=== PATIENT | female | born 1975 | race Caucasian/White ===

== ENCOUNTER → 2016-05-25 | Outpatient (CLI) | payer OTHER ==
[~2016-05-25] MED LIST: MTR600X PO; OXYC-57 PO
== END | disposition home or self-care (01) ==
LOC: C.PAPS 10:19
PROVIDERS: ATTEND Obstetrics & Gynecology
DX: Z12.4 Encounter for screening for malignant neoplasm of cervix (principal)

== ENCOUNTER → 2016-05-25 | Outpatient (CLI) | payer OTHER ==
[2016-05-31 13:54] LABS: CHLAMYDIA TRACH RNA*** NOT DETECTED (NOT DETECTED); GC (NEIS GONORRHOEAE)RNA** NOT DETECTED (NOT DETECTED); TRICHOMONAS VAGINALIS RNA** NOT DETECTED (NOT DETECTED)
== END | disposition home or self-care (01) ==
LOC: C.LAB1850 16:01
PROVIDERS: ATTEND Obstetrics & Gynecology
DX: Z11.3 Encounter for screening for infections with a predominantly sexual mode of transmission (principal); N93.9 Abnormal uterine and vaginal bleeding, unspecified

== ENCOUNTER → 2017-07-25 | Outpatient (CLI) | payer BC ==
--- NOTE | 2017-07-25 15:09 | MAMMOGRAPHY REPORT ---
BILATERAL DIGITAL DIAGNOSTIC MAMMOGRAM TOMOSYNTHESIS WITH CAD: 07/25/2017 CLINICAL HISTORY: Interval follow-up of bilateral breast asymmetries and left breast calcifications. Patient reports no palpable lumps or other complaints. TECHNIQUE: Breast tomosynthesis in addition to standard 2D mammography was performed. Current study was also evaluated with a Computer Aided Detection (CAD) system. Bilateral CC and MLO 2D and tomosyn thesis images and spot magnification left CC and ML views were obtained. COMPARISON: Comparison is made to exams dated: 05/30/2015 ultrasound, 05/30/2015 mammogram, and 016 mammogram - [facility]. BREAST COMPOSITION: There are scattered areas of fibroglandular density in both breasts. FINDINGS: The previously described asymmetries within the left upper outer quadrant and right subareo lar breast are stable dating back to the May 2015 exam and are benign given the long-term stabili ty and felt to represent normal fibroglandular tissue. 2 adjacent coarse benign calcifications withi n the left upper outer quadrant are stable and are considered benign. There are no suspicious masses , calcifications, or areas of architectural distortion noted within either breast. There has been no significant interval change compared to the prior exams. IMPRESSION: ACR BI-RADS CATEGORY 2: BENIGN There is no mammographic evidence of malignancy in either breast. A 1 year screening mammogram is rec ommended. The patient has been verbally notified of the results. Approximately 10% of breast cancers are not detected with mammography. A negative mammographic report should not delay biopsy if a clinically suggestive mass is present. Lisy Souza M.D. ah/:07/25/2017 11:17:20 Sales Administration Specialist: Linda Carreon, [facility] letter sent: Normal /2 BI-RADS Code: ACR BI-RADS Category 2: Benign
== END | disposition home or self-care (01) ==
LOC: C.MAMM 10:49
PROVIDERS: ATTEND Obstetrics & Gynecology
DX: R92.0 Mammographic microcalcification found on diagnostic imaging of breast (principal); N64.89 Other specified disorders of breast